=== PATIENT | female | born 1990 | race Caucasian/White ===

== ENCOUNTER 2018-05-30 09:08 | Emergency (ER) | payer BC, OTHER ==
--- NOTE | 2018-05-30 10:00 | UC ---
Upper Extremity HPI - HPI Summary HPI Summary: Patient is having some pain, numbness and tingling with the movement of the right thumb. mostly along the radial side of wrist. she types alot at work. - History of Current Complaint Chief Complaint: UCUpperExtremity Stated Complaint: RT WRIST COMPLAINT Time Seen by Provider: 05/30/18 09:45 Hx Obtained From: Patient Hx Last Menstrual Period: 05/17/18 ?: No Onset/Duration: Sudden Onset, Lasting Weeks Severity Initially: Mild Severity Currently: Moderate Pain Intensity: 4 Character: Aching, Stiffness Aggravating Factor(s): Movement Alleviating Factor(s): Nothing Associated Signs And Symptoms: Positive: Negative - Allergies/Home Medications Allergies/Adverse Reactions: Allergies Allergy/AdvReac Type Severity Reaction Status Date / Time No Known Allergies Allergy Verified 05/30/18 09:21 Home Medications: Home Medications Ibuprofen TAB* [Advil TAB*] 400 mg PO Q6H PRN 05/30/18 [History Confirmed ] PMH/Surg Hx/FS Hx/Imm Hx Previously Healthy: Yes - Surgical History Surgical History: None Surgery Procedure, Year, and Place: denies - Family History Known Family History: Negative: Cardiac Disease, Hypertension - Social History Alcohol Use: Rare Substance Use Type: None Smoking Status (MU): Never Smoked Tobacco Review of Systems All Other Systems Reviewed And Are Negative: Yes Constitutional: Positive: Negative Skin: Positive: Negative Eyes: Positive: Negative ENT: Positive: Negative Respiratory: Positive: Negative Cardiovascular: Positive: Negative Gastrointestinal: Positive: Negative Genitourinary: Positive: Negative Motor: Positive: Negative Neurovascular: Positive: Negative Musculoskeletal: Positive: Arthralgia, Decreased ROM, Myalgia Neurological: Positive: Negative Psychological: Positive: Negative Is Patient Immunocompromised?: No Physical Exam Triage Information Reviewed: Yes Appearance: Well-Appearing, Well-Nourished, Pain Distress Vital Signs: Initial Vital Signs Temp 98.0 F 05/30/18 09:22 Pulse 83 05/30/18 09:22 Resp 15 05/30/18 09:22 BP 129/87 05/30/18 09:22 Pulse Ox 100 05/30/18 09:22 Vital Signs Reviewed: Yes Eye Exam: Normal ENT Exam: Normal Dental Exam: Normal Neck exam: Normal Respiratory Exam: Normal Respiratory: Positive: Chest non-tender, Lungs clear, Normal breath sounds Cardiovascular Exam: Normal Cardiovascular: Positive: RRR, No Murmur, Pulses Normal Abdominal Exam: Normal Bowel Sounds: Positive: Present Musculoskeletal: Positive: No Edema, Strength Limited @, ROM Limited @ - in right thumb Neurological Exam: Normal Psychological Exam: Normal Skin Exam: Normal Upper Extremity Course/Dx - Course Course Of Treatment: hx obtained, exam performed, meds reviewed, splint applied , educated on care of issues and exercises. - Differential Dx/Diagnosis Differential Diagnosis/HQI/PQRI: Contusion, Fracture (Closed), Strain, Sprain Provider Diagnosis: Tenosynovitis, de Quervain Discharge - Sign-Out/Discharge Documenting (check all that apply): Patient Departure All imaging exams completed and their final reports reviewed: No Studies - Discharge Plan Condition: Stable Disposition: HOME Referrals: No Primary Care Phys,NOPCP [Primary Care Provider] - Additional Instructions: 1. usew the splint as much as possible for the next week 2. warm water soaks and stretching. 3. Advil for the inflammation 4. work into stretching the wrist and thumb over the next few days. 5. Follow up if not improving. - Billing Disposition and Condition Condition: STABLE Disposition: Home - Attestation Statements Provider Attestation: I was available for consult. This patient was seen by the MIKKI. The patient was not presented to, seen by, or examined by me. EK
== END 2018-05-30 09:58 | disposition home or self-care (01) ==
LOC: UCCORT 09:08
DX: M65.4 Radial styloid tenosynovitis [de Quervain] (principal); M65.841 Other synovitis and tenosynovitis, right hand
CPT/HCPCS: 99202; G0463